=== PATIENT | male | born 1970 | race African-American/Black ===

== ENCOUNTER 2020-07-16 23:53 | Emergency (ER) | payer OTHER ==
[~2020-07-16] VITALS: Ht 177.8 cm; Wt 78.0 kg
[2020-07-17] MEDS ORDERED: ONDANSETRON HCL 4MG/2ML INJ IV STA (00:59)
[2020-07-17] MEDS ORDERED: KETOROLAC 30MG/ML VIAL IV STA (00:59)
[2020-07-17] MEDS ORDERED: SODIUM CHLORIDE 0.9% 1,000 ML IV ONE (01:00)
[2020-07-17 01:33] LABS: BASOPHILS % 1.1 % (0.0-2.0); EOSINOPHILS % 1.6 % (0.0-5.0); HEMATOCRIT. 34.6 % (42.0-52.0); HEMOGLOBIN. 11.5 g/dL (14.0-18.0); LYMPHOCYTES % 20.1 % (20.0-50.0); MEAN CORPUSCULAR HEMOGLOBIN 27.6 pg (28.0-32.0); MEAN CORPUSCULAR VOLUME 82.8 fL (80.0-94.0); MEAN PLATELET VOLUME 7.1 fl (7.4-10.4); MONOCYTES % 7.1 % (2.0-8.0); NEUTROPHILS % 70.1 % (40.0-76.0); PLATELET 338 x1000/uL (130-400); RED BLOOD CELL COUNT 4.18 mill/uL (4.7-6.1); RED CELL DISTRIBUTION WIDTH 17.8 % (11.6-14.6)
[2020-07-17 01:39] LABS: CHLORIDE 105 mEq/L (98-107)
[2020-07-17] MEDS ORDERED: ONDA4TAB5 MT (02:58)
[2020-07-17 03:20] VITALS: BP 112/77
== END 2020-07-17 03:31 | disposition home or self-care (01) ==
LOC: ER 23:53
DX: T40.7X1A Poisoning by cannabis (derivatives), accidental (unintentional), initial encounter (principal); T51.0X1A Toxic effect of ethanol, accidental (unintentional), initial encounter; R11.10 Vomiting, unspecified; G89.29 Other chronic pain; M25.552 Pain in left hip; M25.551 Pain in right hip; F32.9 Major depressive disorder, single episode, unspecified; M19.90 Unspecified osteoarthritis, unspecified site; F15.10 Other stimulant abuse, uncomplicated; Z96.643 Presence of artificial hip joint, bilateral; Y92.018 Other place in single-family (private) house as the place of occurrence of the external cause
CPT/HCPCS: 36415; 72170; 80053; 85025; 93005; 96361; 96374; 96375; 99285; J1885; J2405; J7030

== ENCOUNTER 2021-03-21 10:51 | Inpatient (IN) | payer OTHER ==
[~2021-03-21] VITALS: Ht 172.7 cm; Wt 90.7 kg
[~2021-03-21 10:51] MED LIST: ONDA4TAB5 MT
[2021-03-21] MEDS ORDERED: LEVOFLOXACIN 750MG PREMIX 150 ML IV ONE (11:30)
[2021-03-21] MEDS ORDERED: SODIUM CHLORIDE 0.9% 1000ML BAG (SEPSIS BOLUS) IV ONE (11:30)
[2021-03-21] MEDS ORDERED: ACETAMINOPHEN 325MG TABLET PO STA (11:30)
[2021-03-21] MEDS ORDERED: KETOROLAC 30MG/ML VIAL IV ONE (11:45)
[2021-03-21 11:52] LABS: CHLORIDE 104 mEq/L (98-107)
[2021-03-21 12:16] LABS: BASOPHILS % 0.4 % (0.0-2.0); EOSINOPHILS % 0.8 % (0.0-5.0); HEMATOCRIT. 34.7 % (42.0-52.0); HEMOGLOBIN. 11.3 g/dL (14.0-18.0); LYMPHOCYTES % 10.8 % (20.0-50.0); MEAN CORPUSCULAR HEMOGLOBIN 26.8 pg (28.0-32.0); MEAN CORPUSCULAR VOLUME 82.6 fL (80.0-94.0); MEAN PLATELET VOLUME 7.8 fl (7.4-10.4); MONOCYTES % 9.7 % (2.0-8.0); NEUTROPHILS % 78.3 % (40.0-76.0); PLATELET 305 x1000/uL (130-400); RED CELL DISTRIBUTION WIDTH 18.2 % (11.6-14.6)
[2021-03-21 14:58] LABS: CLARITY URINE CLEAR (CLEAR); COLOR URINE YELLOW (YELLOW); KETONES URINE NEGATIVE (NEGATIVE); LEUKOCYTE ESTERASE URINE TRACE (NEGATIVE); NITRITE URINE NEGATIVE (NEGATIVE); OCCULT BLOOD URINE NEGATIVE (NEGATIVE); PROTEIN URINE NEGATIVE (NEGATIVE); SPECIFIC GRAVITY URINE 1.016 (1.005-1.030); UROBILINOGEN URINE 0.2 E.U./dL (0.2-1.0)
[2021-03-21 15:37] LABS: OPIATES URINE SCREEN NEGATIVE (NEGATIVE)
[2021-03-21 15:38] LABS: *AMPHETAMINES SCREEN URINE NEGATIVE (NEGATIVE); *BARBITURATES SCREEN URINE NEGATIVE (NEGATIVE); *BENZODIAZEPINES SCREEN URINE NEGATIVE (NEGATIVE); CANNABINOID URINE SCREEN NEGATIVE (NEGATIVE); PHENCYCLIDINE URINE SCREEN NEGATIVE (NEGATIVE)
[2021-03-21 15:39] LABS: *COCAINE SCREEN URINE NEGATIVE (NEGATIVE); METHADONE URINE SCREEN NEGATIVE (NEGATIVE)
[2021-03-21] MEDS ORDERED: LORAZEPAM 0.5MG TABLET PO PRN (17:00)
[2021-03-21] MEDS ORDERED: ONDANSETRON HCL 4MG/2ML INJ IV PRN (17:00)
[2021-03-21] MEDS: MULTIVITAMINS,THER W-MINERALS TABLET PO SCH (20:48)
[2021-03-21] MEDS: THIAMINE HCL 100MG TABLET PO SCH (20:48)
[2021-03-21 22:00] VITALS: BP 118/55
[2021-03-21] MEDS ORDERED: METRONIDAZOLE 500 MG PREMIX 100 ML IV SCH ×2 (22:00→22:15)
[2021-03-21] MEDS: MAGNESIUM/ALUMINUM HYDROXIDE/SIMETHICONE 30ML UDC PO PRN (23:34)
[2021-03-21] MEDS: ACETAMINOPHEN 325MG TABLET PO PRN (23:36)
[2021-03-22] VITALS (11 sets, daily range): BP systolic 109–141; BP diastolic 48–83
[2021-03-22] MEDS: MULTIVITAMINS,THER W-MINERALS TABLET PO SCH (08:27)
[2021-03-22] MEDS: THIAMINE HCL 100MG TABLET PO SCH (08:27)
[2021-03-22] MEDS: ACETAMINOPHEN 325MG TABLET PO PRN ×2 (11:00→21:39)
[2021-03-22] MEDS: METRONIDAZOLE 500MG TABLET PO SCH ×3 (11:01→21:38)
[2021-03-22] MEDS ORDERED: LEVOFLOXACIN 500MG PREMIX 100 ML IV SCH (12:00)
[2021-03-22] MEDS: SODIUM CHLORIDE 0.9% 1,000 ML IV SCH (12:38)
[2021-03-22] MEDS: LEVOFLOXACIN 500MG PREMIX 100 ML IV SCH (12:46)
[2021-03-22 15:48] LABS: BASOPHILS % 0.2 % (0.0-2.0); CHLORIDE 110 mEq/L (98-107); EOSINOPHILS % 1.6 % (0.0-5.0); HEMATOCRIT. 31.2 % (42.0-52.0); HEMOGLOBIN. 10.1 g/dL (14.0-18.0); LYMPHOCYTES % 20.5 % (20.0-50.0); MEAN CORPUSCULAR HEMOGLOBIN 26.6 pg (28.0-32.0); MEAN CORPUSCULAR VOLUME 82.3 fL (80.0-94.0); MEAN PLATELET VOLUME 7.6 fl (7.4-10.4); MONOCYTES % 9.8 % (2.0-8.0); NEUTROPHILS % 67.9 % (40.0-76.0); PLATELET 295 x1000/uL (130-400); RED BLOOD CELL COUNT 3.79 mill/uL (4.7-6.1); RED CELL DISTRIBUTION WIDTH 18.2 % (11.6-14.6)
[2021-03-22] MEDS: MAGNESIUM/ALUMINUM HYDROXIDE/SIMETHICONE 30ML UDC PO PRN (21:38)
[2021-03-23] VITALS (8 sets, daily range): BP systolic 107–140; BP diastolic 61–88
[2021-03-23] MEDS: ACETAMINOPHEN 325MG TABLET PO PRN (06:06)
[2021-03-23] MEDS: SODIUM CHLORIDE 0.9% 1,000 ML IV SCH ×2 (06:15→09:00)
[2021-03-23] MEDS: METRONIDAZOLE 500MG TABLET PO SCH ×2 (06:15→14:00)
[2021-03-23] MEDS: MULTIVITAMINS,THER W-MINERALS TABLET PO SCH (09:42)
[2021-03-23] MEDS: THIAMINE HCL 100MG TABLET PO SCH (09:42)
[2021-03-23] MEDS: LEVOFLOXACIN 500MG PREMIX 100 ML IV SCH (11:16)
[2021-03-23] MEDS ORDERED: IOHEXOL-300 100 ML BOTTLE ONE (12:13)
[2021-03-24] MEDS ORDERED: LEVOFLOXACIN 500MG TABLET PO SCH (11:00)
[2021-03-27 19:06] LABS: OVA & PARASITE EXAM Final report (.)
== END 2021-03-23 15:18 | disposition home or self-care (01) | DRG 392 ==
LOC: ER 12:49 → 3WST 15:26 → EDBEDREQSVC 15:37 → EDBEDREQ 15:37 → EDBEDREQTM 15:37 → ENRESERV 17:59 → ER 20:32
PROVIDERS: ADMIT Hospitalist; ATTEND Hospitalist
DX: K52.9 Noninfective gastroenteritis and colitis, unspecified (principal); E87.2 Acidosis; D64.9 Anemia, unspecified; F32.A Depression, unspecified; E66.9 Obesity, unspecified; Z20.822 Contact with and (suspected) exposure to COVID-19; F19.10 Other psychoactive substance abuse, uncomplicated; D63.8 Anemia in other chronic diseases classified elsewhere; M19.90 Unspecified osteoarthritis, unspecified site; Z68.30 Body mass index [BMI] 30.0-30.9, adult; D72.819 Decreased white blood cell count, unspecified; K21.9 Gastro-esophageal reflux disease without esophagitis
CPT/HCPCS: 36415; 71045; 74177; 80053; 80305; 81003; 83605; 84145; 84484; 85025; 87015; 87045; 87177; 87209; 87426; 87427; 87449; 87493; 93005; 93970; 99291; J1885; J1956; J7030; Q9967